=== PATIENT | male | born 1995 | race Caucasian/White ===

== ENCOUNTER → 2016-12-26 | Outpatient (REF) ==
[~2016-12-26] MED LIST: ATOMOXETINE; CEFZIL250 MG PO; DESYREL; OMNICEF 300MG300 MG PO; RISPERDAL; TENEX PO; ZIPRASIDONE
[2016-12-26 13:12] LABS: CHLAMYDIA/TRACH by PCR Male NOT DETECTED; Neisseria Gon by PCR Male NOT DETECTED
== END ==
LOC: ZLAB.WCH 10:50
PROVIDERS: Nurse Practitioner Family
DX: Z01.89 Encounter for other specified special examinations (principal)

== ENCOUNTER 2017-02-02 09:04 | Emergency (ER) | payer SELFPAY ==
[~2017-02-02] VITALS: Ht 188 cm; Wt 68.2 kg
[~2017-02-02 09:04] MED LIST changes: -OMNICEF 300MG300 MG PO
[2017-02-02 09:06] VITALS: BP 134/78; TEMP 98.2
[2017-02-02 09:47] LABS: BASO # 0.1 (0.0-0.2); BASO % 0.5 % (0.0-2.0); EOS # 0.2 (0.0-0.7); EOS % 1.7 % (0-4.0); GRAN # 8.1 (1.4-6.5); GRAN % 73.7 % (42.2-75.2); HEMOGLOBIN 15.9 g/dl (13.5-18.0); LYMPH # 1.9 (1.2-3.4); LYMPH % 16.8 % (20.0-51.0); MEAN CELL VOLUME 91 fl (80.0-100.0); MEAN CORPUSCULAR HEMOGLOBIN 31 pg (27.0-31.0); MEAN CORPUSCULAR HGB CONC 35 g/dl (33.0-37.0); MEAN PLATELET VOLUME 10.4 fl (7.4-10.4); MONO # 0.8 (0.1-0.6); PLATELET COUNT 248 K/mm3 (130-400); RED BLOOD COUNT 5.06 M/mm3 (4.20-5.60); REDCELL DISTRIBUTION WIDTH-CV 12.8 % (11.5-14.5)
[2017-02-02 09:55] LABS: ADJUSTED CALCIUM 9.5 mg/dL (8.4-10.2); ALANINE AMINOTRANSFERASE 28 U/L (21-72); ALBUMIN 4.7 gm/dL (3.5-5.0); ALKALINE PHOSPHATASE 83 U/L (50-136); ANION GAP 12 mmol/L (7-16); BILIRUBIN,TOTAL 1.2 mg/dL (0.0-1.0); BLOOD UREA NITROGEN 9 mg/dL (9-20); CALCIUM 10.1 mg/dL (8.4-10.2); CARBON DIOXIDE 26 mmol/L (22-30); CHLORIDE 102 mmol/L (98-107); CREATININE, serum 0.89 mg/dL (0.66-1.25); GLUCOSE 92 mg/dL (74-106); POTASSIUM 4.3 mmol/L (3.4-5.0); SODIUM 140 mmol/L (137-145); TOTAL PROTEIN 8.4 gm/dL (6.4-8.2)
[2017-02-02 09:59] LABS: ACETAMINOPHEN < 10 ug/mL (10-30); SALICYLATE < 1.0 mg/dL
[2017-02-02 10:07] LABS: PH 7 (5-8); SQUAMOUS EPITHELIAL None Seen /hpf; URINE APPEARANCE Clear; URINE BACTERIA None Seen /hpf; URINE BILIRUBIN Negative (NEGATIVE); URINE BLOOD Negative (NEGATIVE); URINE COLOR Yellow; URINE GLUCOSE Negative (NEGATIVE); URINE KETONE 1+ (NEGATIVE); URINE RBC 0-2 /hpf; URINE UROBILINOGEN Negative (NEGATIVE); URINE WBC 0-2 /hpf
[2017-02-02 10:16] LABS: AMPHETAMINE URINE NEGATIVE; BARBITURATES URINE NEGATIVE; BENZODIAZEPINES URINE NEGATIVE; BUPRENORPHINE URINE NEGATIVE; METHADONE URINE NEGATIVE; OPIATES URINE NEGATIVE; OXYCODONE URINE NEGATIVE; PHENCYCLIDINE URINE NEGATIVE; PROPOXYPHENE URINE NEGATIVE; THC CANNABINOIDS URINE NEGATIVE
[2017-02-02] MEDS ORDERED: OMNICEF 300MG300 MG PO (12:16)
[2017-02-02 12:33] VITALS: PULSE 57
== END 2017-02-02 12:32 | disposition home or self-care (01) ==
LOC: COL.ER 09:04
PROVIDERS: Physician Assistant
DX: R45.851 Suicidal ideations (principal); H66.92 Otitis media, unspecified, left ear; R10.84 Generalized abdominal pain; F32.9 Major depressive disorder, single episode, unspecified; F41.9 Anxiety disorder, unspecified; F17.210 Nicotine dependence, cigarettes, uncomplicated; Z59.0 Homelessness

== ENCOUNTER 2017-03-13 13:50 | Emergency (ER) | payer SELFPAY ==
[~2017-03-13] VITALS: Ht 188 cm; Wt 65.7 kg
[~2017-03-13 13:50] MED LIST changes: +OMNICEF 300MG300 MG PO
[2017-03-13 13:54] VITALS: BP 123/80; PULSE 67; TEMP 98.4
== END 2017-03-13 15:35 | disposition left against medical advice (07) ==
LOC: COL.ER 13:50
DX: R10.84 Generalized abdominal pain (principal); Z53.21 Procedure and treatment not carried out due to patient leaving prior to being seen by health care provider

== ENCOUNTER 2018-04-06 20:21 | Emergency (ER) | payer SELFPAY ==
[2018-04-06 20:32] VITALS: BP 141/70; PULSE 75; TEMP 98.1
[2018-04-06] MEDS ORDERED: ATARAX 25MG25 MG/TAB PO (20:45)
[2018-04-06] MEDS ORDERED: STRATTERA60 MG PO (20:45)
[2018-04-06 20:56] LABS: COLLECTION METHOD CLEAN CATCH
[2018-04-06 21:03] LABS: PH 7 (5-8); SQUAMOUS EPITHELIAL None Seen /hpf; URINE APPEARANCE Clear; URINE BACTERIA None Seen /hpf; URINE BILIRUBIN Negative (NEGATIVE); URINE BLOOD Negative (NEGATIVE); URINE COLOR Straw; URINE GLUCOSE Negative (NEGATIVE); URINE KETONE Negative (NEGATIVE); URINE LEUKOCYTE ESTERASE Negative (NEGATIVE); URINE NITRATE Negative (NEGATIVE); URINE PROTEIN(semi-quant) Negative (NEGATIVE); URINE RBC 0-2 /hpf; URINE UROBILINOGEN Negative (NEGATIVE)
[2018-04-06] MEDS ORDERED: FLAGYL500 MG PO (21:19)
== END 2018-04-06 21:32 | disposition home or self-care (01) ==
LOC: COL.ER 20:21
PROVIDERS: Physician Assistant
DX: Z20.2 Contact with and (suspected) exposure to infections with a predominantly sexual mode of transmission (principal)

== ENCOUNTER 2019-04-17 18:23 | Emergency (ER) | payer SELFPAY ==
[~2019-04-17] VITALS: Ht 157.5 cm; Wt 81.8 kg
[~2019-04-17 18:23] MED LIST changes: +ATARAX 25MG25 MG/TAB PO; +FLAGYL500 MG PO; +STRATTERA60 MG PO
[2019-04-17 18:28] VITALS: TEMP 98.2
[2019-04-17] MEDS ORDERED: ADDERALL20 MG PO (18:33)
[2019-04-17] MEDS ORDERED: LEXAPRO 10MG10 MG PO (18:33)
[2019-04-17] MEDS ORDERED: ZYPREXA 5MG5 MG PO (18:33)
[2019-04-17] MEDS ORDERED: CLEOCIN HC150 MG/CAP PO (20:15)
[2019-04-17 20:30] VITALS: BP 141/74; PULSE 74
== END 2019-04-17 20:30 | disposition home or self-care (01) ==
LOC: COL.ER 18:23
DX: S61.412A Laceration without foreign body of left hand, initial encounter (principal); Z23 Encounter for immunization; W26.0XXA Contact with knife, initial encounter; Y92.009 Unspecified place in unspecified non-institutional (private) residence as the place of occurrence of the external cause

== ENCOUNTER 2019-04-27 21:06 | Emergency (ER) | payer SELFPAY ==
[~2019-04-27] VITALS: Ht 188 cm; Wt 78.7 kg
[~2019-04-27 21:06] MED LIST changes: +ADDERALL20 MG PO; +CLEOCIN HC150 MG/CAP PO; +LEXAPRO 10MG10 MG PO; +ZYPREXA 5MG5 MG PO
[2019-04-27 21:10] VITALS: BP 126/74; TEMP 98
[2019-04-27] MEDS ORDERED: DOXYCYCLINE HY100 MG PO (23:26)
[2019-04-27] MEDS ORDERED: LEVAQUIN 750MG750 M1 PO (23:26)
[2019-04-27 23:42] VITALS: PULSE 82
== END 2019-04-27 23:45 | disposition home or self-care (01) ==
LOC: COL.ER 21:06
DX: S91.331A Puncture wound without foreign body, right foot, initial encounter (principal); W45.8XXA Other foreign body or object entering through skin, initial encounter; Y92.009 Unspecified place in unspecified non-institutional (private) residence as the place of occurrence of the external cause

== ENCOUNTER 2019-05-25 16:06 | Emergency (ER) | payer SELFPAY ==
[~2019-05-25] VITALS: Ht 185.4 cm; Wt 76.8 kg
[~2019-05-25 16:06] MED LIST changes: +DOXYCYCLINE HY100 MG PO; +LEVAQUIN 750MG750 M1 PO
[2019-05-25 16:33] LABS: COLLECTION METHOD CLEAN CATCH
[2019-05-25 16:42] LABS: PH 7 (5-8); SQUAMOUS EPITHELIAL None Seen /hpf; URINE APPEARANCE Hazy; URINE BACTERIA None Seen /hpf; URINE BILIRUBIN Negative (NEGATIVE); URINE BLOOD Negative (NEGATIVE); URINE COLOR Yellow; URINE GLUCOSE Negative (NEGATIVE); URINE KETONE Negative (NEGATIVE); URINE LEUKOCYTE ESTERASE Negative (NEGATIVE); URINE NITRATE Negative (NEGATIVE); URINE PROTEIN(semi-quant) Negative (NEGATIVE); URINE RBC None Seen /hpf; URINE UROBILINOGEN >=4.0 mg/dL (NEGATIVE)
[2019-05-25 17:15] VITALS: BP 132/86; PULSE 92; TEMP 98
== END 2019-05-25 17:21 | disposition home or self-care (01) ==
LOC: COL.ER 16:06
PROVIDERS: Emergency Medicine
DX: Z20.2 Contact with and (suspected) exposure to infections with a predominantly sexual mode of transmission (principal); F90.9 Attention-deficit hyperactivity disorder, unspecified type
CPT/HCPCS: J0696

== ENCOUNTER 2019-06-07 15:06 | Emergency (ER) | payer SELFPAY ==
[~2019-06-07] VITALS: Ht 185.4 cm; Wt 76.8 kg
[2019-06-07 15:12] VITALS: BP 140/71; TEMP 98.5
[2019-06-07 15:27] LABS: COLLECTION METHOD CLEAN CATCH
[2019-06-07 15:39] LABS: PH 6 (5-8); SQUAMOUS EPITHELIAL None Seen /hpf; URINE APPEARANCE Clear; URINE BACTERIA None Seen /hpf; URINE BILIRUBIN Negative (NEGATIVE); URINE BLOOD Negative (NEGATIVE); URINE COLOR Straw; URINE GLUCOSE Negative (NEGATIVE); URINE KETONE Negative (NEGATIVE); URINE LEUKOCYTE ESTERASE Negative (NEGATIVE); URINE NITRATE Negative (NEGATIVE); URINE PROTEIN(semi-quant) Negative (NEGATIVE); URINE RBC None Seen /hpf; URINE UROBILINOGEN Negative (NEGATIVE)
[2019-06-07 16:05] VITALS: PULSE 84
== END 2019-06-07 16:08 | disposition home or self-care (01) ==
LOC: COL.ER 15:06
PROVIDERS: Physician Assistant
DX: R30.0 Dysuria (principal); Z20.2 Contact with and (suspected) exposure to infections with a predominantly sexual mode of transmission

== ENCOUNTER 2019-12-07 17:00 | Emergency (ER) | payer SELFPAY ==
[~2019-12-07] VITALS: Ht 190.5 cm; Wt 72.7 kg
[2019-12-07 17:59] LABS: COLLECTION METHOD CLEAN CATCH
[2019-12-07 18:01] VITALS: TEMP 98.3
[2019-12-07 18:05] LABS: BASO # 0.1 (0.0-0.2); BASO % 0.9 % (0.0-2.0); EOS # 0.2 (0.0-0.7); EOS % 2.6 % (0-4.0); GRAN # 3.6 (1.4-6.5); GRAN % 51.7 % (42.2-75.2); HEMATOCRIT 45.8 % (42.0-52.0); HEMOGLOBIN 16.1 g/dl (13.5-18.0); LYMPH # 2.4 (1.2-3.4); LYMPH % 34.8 % (20.0-51.0); MEAN CELL VOLUME 88 fl (80.0-100.0); MEAN CORPUSCULAR HEMOGLOBIN 31 pg (27.0-31.0); MEAN CORPUSCULAR HGB CONC 35 g/dl (33.0-37.0); MEAN PLATELET VOLUME 9.6 fl (7.4-10.4); MONO # 0.7 (0.1-0.6); MONO % 9.7 % (1.7-9.3); PLATELET COUNT 259 K/mm3 (130-400); RED BLOOD COUNT 5.23 M/mm3 (4.20-5.60); REDCELL DISTRIBUTION WIDTH-CV 12.2 % (11.5-14.5)
[2019-12-07 18:07] LABS: PH 5 (5-8); SQUAMOUS EPITHELIAL None Seen /hpf; URINE APPEARANCE Clear; URINE BACTERIA None Seen /hpf; URINE BILIRUBIN Negative (NEGATIVE); URINE BLOOD Negative (NEGATIVE); URINE COLOR Yellow; URINE GLUCOSE Negative (NEGATIVE); URINE KETONE Trace (NEGATIVE); URINE LEUKOCYTE ESTERASE Negative (NEGATIVE); URINE NITRATE Negative (NEGATIVE); URINE PROTEIN(semi-quant) 1+ (NEGATIVE); URINE RBC 0-2 /hpf; URINE UROBILINOGEN Negative (NEGATIVE)
[2019-12-07 18:21] LABS: ALANINE AMINOTRANSFERASE 90 U/L (21-72); ALBUMIN 4.9 gm/dL (3.5-5.0); ALKALINE PHOSPHATASE 76 U/L (50-136); ANION GAP 10 mmol/L (7-16); AST,SGOT 53 U/L (15-37); BILIRUBIN,TOTAL 0.8 mg/dL (0.0-1.0); BLOOD UREA NITROGEN 13 mg/dL (9-20); CALCIUM 9.6 mg/dL (8.4-10.2); CARBON DIOXIDE 23 mmol/L (22-30); CHLORIDE 106 mmol/L (98-107); CREATININE, serum 1.02 (0.66-1.25); GLUCOSE 98 mg/dL (74-106); POTASSIUM 3.9 mmol/L (3.4-5.0); SODIUM 139 mmol/L (137-145); TOTAL PROTEIN 8.3 gm/dL (6.4-8.2)
[2019-12-07 18:22] LABS: ACETAMINOPHEN < 10 ug/mL (10-30)
[2019-12-07 18:23] LABS: ALCOHOL(ethanol),MEDICAL < 10 mg/dL; SALICYLATE < 1.0 mg/dL
[2019-12-07 18:39] LABS: TRICYCLIC ANTIDEPRESS URINE NEGATIVE
[2019-12-08 06:10] VITALS: BP 129/82; PULSE 69
== END 2019-12-08 06:16 | disposition home or self-care (01) ==
LOC: COL.ER 17:00
PROVIDERS: Emergency Medicine
DX: T43.592A Poisoning by other antipsychotics and neuroleptics, intentional self-harm, initial encounter (principal); F32.9 Major depressive disorder, single episode, unspecified; F41.9 Anxiety disorder, unspecified; F17.210 Nicotine dependence, cigarettes, uncomplicated

== ENCOUNTER 2020-05-22 22:33 | Emergency (ER) | payer SELFPAY ==
[~2020-05-22] VITALS: Ht 185.4 cm; Wt 72.7 kg
[2020-05-22 22:34] VITALS: TEMP 98.3
[2020-05-22 22:52] LABS: BASO # 0.1 (0.0-0.2); BASO % 0.8 % (0.0-2.0); EOS # 0.2 (0.0-0.7); GRAN # 5.5 (1.4-6.5); GRAN % 59.8 % (42.2-75.2); HEMATOCRIT 44.6 % (42.0-52.0); HEMOGLOBIN 15.4 g/dl (13.5-18.0); LYMPH # 2.5 (1.2-3.4); LYMPH % 26.9 % (20.0-51.0); MEAN CELL VOLUME 91 fl (80.0-100.0); MEAN CORPUSCULAR HEMOGLOBIN 31 pg (27.0-31.0); MEAN CORPUSCULAR HGB CONC 35 g/dl (33.0-37.0); MEAN PLATELET VOLUME 10.3 fl (7.4-10.4); MONO # 0.9 (0.1-0.6); MONO % 9.5 % (1.7-9.3); PLATELET COUNT 280 K/mm3 (130-400); RED BLOOD COUNT 4.92 M/mm3 (4.20-5.60); REDCELL DISTRIBUTION WIDTH-CV 12.7 % (11.5-14.5)
[2020-05-22 23:01] LABS: ALBUMIN 4.9 gm/dL (3.5-5.0); BILIRUBIN,TOTAL 0.6 mg/dL (0.0-1.0); CALCIUM 9.8 mg/dL (8.4-10.2); CREATININE, serum 1.12 (0.66-1.25); POTASSIUM 3.5 mmol/L (3.4-5.0); TOTAL PROTEIN 8.6 gm/dL (6.4-8.2)
[2020-05-23] MEDS ORDERED: CEPHALEXIN250 MG/5 M PO (00:17)
[2020-05-23 01:10] VITALS: BP 118/75; PULSE 92
== END 2020-05-23 01:28 | disposition home or self-care (01) ==
LOC: COL.ER 22:33
PROVIDERS: Emergency Medicine
DX: S06.0X9A Concussion with loss of consciousness of unspecified duration, initial encounter (principal); S01.112A Laceration without foreign body of left eyelid and periocular area, initial encounter; F90.9 Attention-deficit hyperactivity disorder, unspecified type; Y04.2XXA Assault by strike against or bumped into by another person, initial encounter; Y92.830 Public park as the place of occurrence of the external cause
CPT/HCPCS: J1100; J7030; Q9967

== ENCOUNTER → 2020-05-30 | Outpatient (CLI) | payer SELFPAY ==
[~2020-05-30] MED LIST changes: +CEPHALEXIN250 MG/5 M PO
[2020-05-30 15:26] VITALS: BP 130/69; PULSE 80; TEMP 99.1
== END ==
LOC: COL.ER 15:19
DX: Z48.02 Encounter for removal of sutures (principal)